=== PATIENT | male | born 1955 | race Two or more races ===

== ENCOUNTER 2025-06-07 20:01 | Emergency (ER) | payer MEDICARE, OTHER ==
[~2025-06-07] VITALS: Ht 177.8 cm; Wt 99.8 kg
[2025-06-07 20:06] VITALS: BP 111/73; TEMP 98.3; O2SAT 90
[2025-06-07 21:02] LABS: CALCIUM, SERUM 9.2 mg/dL (8.5-10.1); CREATININE 1.5 mg/dL (0.6-1.3); PLATELET COUNT (AUTO) 144 K/uL (150-450); RED BLOOD CELL COUNT(AUTO) 4.15 MIL/uL (4.5-6.0); RED CELL DISTRIBUTION WIDTH 16.3 % (11.5-15.0); SODIUM SERUM 139.0 mmol/L (136-145); UREA NITROGEN, BLOOD 44.0 mg/dL (7-18); WHITE BLOOD COUNT (AUTO) 4.6 K/uL (4.3-11.0)
[2025-06-07 21:06] LABS: ASPARTATE AMINOTRANSFERASE 21.0 U/L (15-37); TOTAL PROTEIN, SERUM 7.3 g/dL (6.4-8.2)
[2025-06-07] MEDS ORDERED: FURO-144 PO (22:12)
[2025-06-07] MEDS ORDERED: FUROSEMIDE 40 MG/4 ML VIAL ONE (22:26)
[2025-06-07] MEDS: FUROSEMIDE 40 MG/4 ML VIAL IV ONE (22:35)
== END 2025-06-07 23:19 ==
LOC: ER 20:03
DX: I11.0 Hypertensive heart disease with heart failure (principal); I50.9 Heart failure, unspecified; E78.5 Hyperlipidemia, unspecified; I25.2 Old myocardial infarction; I27.20 Pulmonary hypertension, unspecified; I48.91 Unspecified atrial fibrillation; J44.9 Chronic obstructive pulmonary disease, unspecified; N40.0 Benign prostatic hyperplasia without lower urinary tract symptoms; F03.90 Unspecified dementia, unspecified severity, without behavioral disturbance, psychotic disturbance, mood disturbance, and anxiety; K21.9 Gastro-esophageal reflux disease without esophagitis; F32.A Depression, unspecified; Z95.0 Presence of cardiac pacemaker; Z91.018 Allergy to other foods
CPT/HCPCS: 99284; 96374; 71045; 85025; 80048; 83690; 80076; 36415; 83880; J1938